=== PATIENT | male | born 1955 | race Caucasian/White ===

== ENCOUNTER 2017-09-22 08:39 | Day surgery (SDC) | payer BC ==
[2017-09-22] MEDS ORDERED: PROPOFOL 10 MG/ML VIAL IV ONE (08:40)
[2017-09-22] MEDS ORDERED: FENTANYL PF 100MCG/2ML VIAL IV ONE (08:40)
[2017-09-22] MEDS ORDERED: LIDOCAINE 2% MDV (20MG/ML) 20ML VIAL IV ONE (08:40)
--- NOTE | 2017-09-22 17:00 | Operative Note ---
DATE OF SURGERY: 09/22/2017 REFERRING PROVIDER: Gerson Wilson DO PREOPERATIVE DIAGNOSIS: Ramos's esophagus and colon polyps. POSTOPERATIVE DIAGNOSES: 1. Includes irregular Z-line. 2. Transverse colon polyp. 3. Rectal polyp. 4. Fair prep. OPERATION: 1. ESOPHAGOGASTRODUODENOSCOPY with biopsy. 2. COLONOSCOPY with hot snare and cold snare polypectomies along with Hemoclip application to hot snare polypectomy site. PROCEDURE: After informed consent was obtained, the patient was placed in the left lateral decubitus position in the endoscopy suite, sedated and monitored by the Department of Anesthesia. Once sedated, a well-lubricated [id number] gastroscope was placed in the posterior oropharynx and under direct visualization passed to the proximal esophagus. The endoscope was advanced to the proximal, mid and distal esophagus. The Z-line was irregular. No ulcers, erosions, strictures, varices, or mass lesions were seen. The remainder of the esophagus, gastric body, antrum, pylorus, duodenal bulb and sweep were unremarkable. J-turn views of the proximal stomach were unremarkable. The endoscope was then straightened. The Z-line was biopsied in a 4-quadrant fashion. The endoscope was removed from the patient with no new findings or abnormalities identified. Digital rectal exam was unremarkable. A well-lubricated CF-160AL colonoscope was inserted into the rectum and advanced to the cecum. The preparation quality was fair. The cecum, ileocecal valve, appendiceal orifice, and ascending colon were unremarkable. In the distal transverse colon, there was a 1 cm sessile polyp removed in piecemeal fashion with a polypectomy snare and Erbe Endocut current. There was no bleeding at the site; however, 1 clip was applied to the site for wound closure purposes. The remainder of the transverse colon, descending colon, and sigmoid colon were unremarkable other than some scattered sigmoid diverticula. The rectum revealed a 4 mm sessile polyp removed with a cold snare. The remainder of the rectum was unremarkable. J-turn views of the anorectum were unremarkable. The endoscope was straightened, the rectal ampulla deflated and the endoscope was removed. RECOMMENDATIONS: The patient should follow a soft, low-fiber diet for the next week. Continue his PPI therapy. He will require repeat upper endoscopy in 3 years, repeat colonoscopy in 3 years as well. As always, thank you for allowing me to participate in the health care of your patients. CC: DO KEV Jefferson
== END 2017-09-22 10:40 | disposition home or self-care (01) ==
LOC: HOP 08:39
PROVIDERS: ATTEND Internal Medicine Gastroenterology
DX: Z12.11 Encounter for screening for malignant neoplasm of colon (principal); D12.3 Benign neoplasm of transverse colon; K62.1 Rectal polyp; K31.89 Other diseases of stomach and duodenum; I10 Essential (primary) hypertension; E78.00 Pure hypercholesterolemia, unspecified
CPT/HCPCS: 45385; 43239; 00813; J3010